=== PATIENT | female | born 1955 | race African-American/Black ===

== ENCOUNTER 2023-10-09 10:38 | Emergency (ER) | payer OTHER ==
[~2023-10-09] VITALS: Ht 160 cm; Wt 100.0 kg
[2023-10-09 11:08] VITALS: O2SAT 100
[2023-10-09] MEDS ORDERED: ASPIRIN 81MG TABLET PO ONE (12:45)
[2023-10-09 13:00] LABS: BASOPHILS % 0.6 % (0.0-2.0); EOSINOPHILS % 0.3 % (0.0-5.0); HEMOGLOBIN. 12.1 g/dL (12.0-16.0); LYMPHOCYTES % 28.8 % (20.0-50.0); MEAN CORPUSCULAR HGB CONC 31.9 g/dL (31.0-37.0); MEAN CORPUSCULAR VOLUME 81.6 fL (81.0-99.0); MEAN PLATELET VOLUME 9.6 fl (7.4-10.4); MONOCYTES % 5.1 % (2.0-8.0); NEUTROPHILS % 65.2 % (40.0-76.0); PLATELET 191 x1000/uL (130-400); RED BLOOD CELL COUNT 4.66 mill/uL (4.2-5.4); WHITE BLOOD COUNT 5.8 x1000/uL (4.5-11.0)
[2023-10-09 13:25] LABS: ALANINE AMINOTRANSFERASE 15 IU/L (10-49); ALBUMIN 3.8 g/dL (3.2-4.8); ASPARTATE AMINOTRANSFERASE 15 IU/L (<34); BILIRUBIN TOTAL 0.7 mg/dL (0.1-1.0); CALCIUM 9.4 mg/dL (8.7-10.4); CARBON DIOXIDE 27 mEq/L (21-32); CHLORIDE 101 mEq/L (98-107); CREATININE 0.8 mg/dL (0.6-1.0); GLUCOSE 304 mg/dL (70-105); POTASSIUM 3.9 mEq/L (3.5-5.1); PROTEIN TOTAL 7.1 g/dL (6.0-8.3); SODIUM 134 mEq/L (136-145); TROPONIN I HIGH SENSITIVITY 6 ng/L (3.0-34); UREA NITROGEN BLOOD 13 mg/dL (9-23)
[2023-10-09] MEDS ORDERED: AMLODIPINE 5MG TABLET PO ONE (15:00)
[2023-10-09 15:21] LABS: TROPONIN I HIGH SENSITIVITY 7 ng/L (3.0-34)
[2023-10-09 16:56] VITALS: BP 189/99; PULSE 81; RESP 17; TEMP 97.9
== END 2023-10-09 17:02 | disposition home or self-care (01) ==
LOC: ER 10:38
DX: I10 Essential (primary) hypertension (principal); E11.9 Type 2 diabetes mellitus without complications; Z91.148 Patient's other noncompliance with medication regimen for other reason; Z90.49 Acquired absence of other specified parts of digestive tract
CPT/HCPCS: 36415; 71045; 80053; 83880; 84484; 85025; 99284